=== PATIENT | female | born 1965 | race African-American/Black ===

== ENCOUNTER 2016-12-05 11:05 | Emergency (ER) | payer MEDICARE ==
[~2016-12-05] VITALS: Ht 162.6 cm; Wt 106.2 kg
[~2016-12-05 11:05] MED LIST: AMOX/K CLAV875 M1 PO; AMOXICILLIN500 MG PO; ATORVASTATIN CA10 MG PO; BACLOFEN10 MG PO; BL ADULT ASA81 MG PO; DOXYCYCL HYC100 M4 PO; ENALAPRIL2.5 MG PO; FERROUS SULF325 M3 PO; FIORICET PO; FLEXERIL PO; FOLIC ACID1 MG PO; GABAPENTIN100 MG PO; GABAPENTIN300 MG PO; HEMOCYTE325 MG PO; HYDROCHLOROT25 MG PO; INDERAL 40MG TA40 MG PO; KEFLEX500 MG PO; LIPITOR20 MG PO; LISINOP/HCTZ1 TA2 PO; LISINOPRIL10 MG PO; LISINOPRIL2.5 MG PO; LISINOPRIL5 MG PO; LOPRESSOR25 MG PO; LYRICA50 MG PO; LYRICA75 MG PO; MEDDOSEPAK PO; NAPROXEN500 MG PO; OMEPRAZOLE20 M1 PO; OMEPRAZOLE20 MG PO; PHENERGAN12.5 MG/TA PO; PLAVIX75 MG PO; PRILOSEC40 MG PO; PROTONIX40 M2 PO; RANITIDINE150 MG OR; ROBITUSSIN AC10 ML PO; TESSALON PER100 MG PO; TRAMADOL HCL50 MG PO; TRAZODONE50 MG PO; TRIAMCINOLON0.11 EX; TRIAMCINOLON0.5 % EX; TYLENOL325 MG PO; ULTRAM50 M1 PO; ZITHROMAX250 MG PO; ZOCOR20 M1 PO; ZPAK PO
[2016-12-05 12:20] LABS: HEMATOCRIT 35.5 % (37.0-47.0); HEMOGLOBIN 12.8 g/dl (12.0-16.0); IMMATURE GRANULOCYTES 0.3 % (0.0-1.0); MEAN CELL VOLUME 82.9 fL CALC (80.0-100.0); MEAN CORPUSCULAR HGB 29.9 pG CALC (26.0-32.0); MEAN CORPUSCULAR HGB CONC 36.1 g/L CALC (32.0-36.0); NEUT# 5.53 thou/uL (2.00-7.15); RED BLOOD COUNT 4.28 mill/uL (4.20-5.60); RED CELL DISTRI WIDTH 14.8 % (11.5-15.5)
[2016-12-05 12:33] LABS: ALBUMIN 4.2 g/dL (3.2-5.0); ALKALINE PHOSPHATASE 70 u/l (38-126); AMYLASE 86 u/l (30-110); ANION GAP 16 (6-22 (CALC)); BILIRUBIN, TOTAL 0.7 mg/dL (0.0-1.4); BUN 14 mg/dL (7-17); BUN/CREATININE RATIO 24 (12-20 (CALC)); CALCIUM 9.8 mg/dL (8.4-10.2); CARBON DIOXIDE 24 mmol/l (22-30); CHLORIDE 107 mmol/l (95-108); CREATININE 0.6 mg/dL (0.5-1.0); GFR > 60 ML/MIN (>=60 (CALC)); GFR FOR AFR.AMER. > 60 ML/MIN (>=60 (CALC)); GLUCOSE 82 mg/dL (65-105); LIPASE 123 u/l (23-300); POTASSIUM 4.4 mmol/l (3.5-5.1); SGOT/AST 26 u/l (14-36); SGPT/ALT 23 u/l (9-52); SODIUM 143 mmol/l (137-146); TOTAL PROTEIN 7.1 g/dL (6.3-8.2)
[2016-12-05] MEDS ORDERED: TESSALON PER100 MG PO (13:27)
[2016-12-05] MEDS ORDERED: ZITHROMAX250 MG PO (13:27)
[2016-12-05] MEDS ORDERED: AFRIN 12 HOUR0.05 % (13:27)
[2016-12-05 13:48] VITALS: BP 131/81
== END 2016-12-05 13:58 | disposition home or self-care (01) ==
LOC: ED 11:05
PROVIDERS: Emergency Medicine
DX: J40 Bronchitis, not specified as acute or chronic (principal); I25.10 Atherosclerotic heart disease of native coronary artery without angina pectoris; I10 Essential (primary) hypertension; M19.90 Unspecified osteoarthritis, unspecified site; G62.9 Polyneuropathy, unspecified; Z95.1 Presence of aortocoronary bypass graft; Z95.5 Presence of coronary angioplasty implant and graft

== ENCOUNTER 2017-01-28 00:28 | Observation (INO) | payer MEDICARE ==
[~2017-01-28] VITALS: Ht 162.6 cm; Wt 109.3 kg
[~2017-01-28 00:28] MED LIST changes: +AFRIN 12 HOUR0.05 %
--- NOTE | 2017-01-28 00:30 | NUR ---
PATIENT BROUGHT IMMEDIATELY BACK TO TREATMENT AREA. UNDRESSED INTO A GOWN. PLACED ON MONITOR. TRIAGE COMPLETED AT BEDSIDE. AWAITING MD RACHEL.
[2017-01-28] MEDS ORDERED: PLAVIX75 MG PO (00:50)
[2017-01-28 01:29] LABS: HEMATOCRIT 36.2 % (37.0-47.0); HEMOGLOBIN 12.9 g/dl (12.0-16.0); IMMATURE GRANULOCYTES 0.2 % (0.0-1.0); MEAN CELL VOLUME 84.6 fL CALC (80.0-100.0); MEAN CORPUSCULAR HGB 30.1 pG CALC (26.0-32.0); MEAN CORPUSCULAR HGB CONC 35.6 g/L CALC (32.0-36.0); NEUT# 2.85 thou/uL (2.00-7.15); RED BLOOD COUNT 4.28 mill/uL (4.20-5.60); RED CELL DISTRI WIDTH 15.7 % (11.5-15.5)
--- NOTE | 2017-01-28 01:30 | NUR ---
STILL WAITING ON TEST RESULTS, GAVE PT WARM BLANKET.
[2017-01-28 01:41] LABS: ALBUMIN 4.5 g/dL (3.2-5.0); ALKALINE PHOSPHATASE 58 u/l (38-126); ANION GAP 16 (6-22 (CALC)); BILIRUBIN, TOTAL 0.4 mg/dL (0.0-1.4); BUN 15 mg/dL (7-17); BUN/CREATININE RATIO 18 (12-20 (CALC)); CALCIUM 9.8 mg/dL (8.4-10.2); CARBON DIOXIDE 26 mmol/l (22-30); CHLORIDE 107 mmol/l (95-108); CREATININE 0.8 mg/dL (0.5-1.0); GFR > 60 ML/MIN (>=60 (CALC)); GFR FOR AFR.AMER. > 60 ML/MIN (>=60 (CALC)); GLUCOSE 86 mg/dL (65-105); SGOT/AST 31 u/l (14-36); SGPT/ALT 32 u/l (9-52); SODIUM 145 mmol/l (137-146); TOTAL PROTEIN 7.4 g/dL (6.3-8.2)
[2017-01-28 01:53] LABS: MYOGLOBIN 33 ng/mL (0 - 62)
--- NOTE | 2017-01-28 02:13 | NUR ---
DR VALLES IN TO GO OVER RESULTS AND PLAN OF ADMISSION.
--- NOTE | 2017-01-28 03:10 | NUR ---
Admission Note Report Given to: EMERITA JEAN-BAPTISTE Transported by: Wheelchair X Stretcher Transported with: X Nurse Transporter X Patent IV X O2 X Lasting Room Machine Operator
[2017-01-28 03:15] VITALS: BP 138/79
--- NOTE | 2017-01-28 03:15 | NUR ---
PT TRANSFERRED TO FLOOR VIA STRETCHER ACCOMPANIED BY SEYMOUR BECKETT;PT AMBULATED WITH A STEADY GAIT TO BEDSIDE;VS AND WT OBTAINED;PT ORIENTED TO ROOM AND CALL LIGHT SYSTEM AND VERBALIZES UNDERSTANDING;PT A&O X3;PT REPORTS LEFT SIDED CHEST PAIN RADIATING TO HER LEFT ARM FOR +4 DAYS;PT COMPLAINS OF THROBBING OF LEFT ARM RATING 8/10 ON THE PAIN SCALE AT THIS TIME AND REQUESTS PAIN MEDICATION;PT TO BE MEDICATED ACCORDINGLY;ASSESSMENT COMPLETED;#20G TO LEFT HAND FLUSHED AND PATENT;TELE MONITOR IN PLACE;RESPIRATIONS EVEN AND UNLABORED ON 02 @ 2L VIA NC,PT IS NOT O2 DEPENDENT;SKIN INTACT;PT VOICES NO OTHER NEEDS AT THIS TIME AND IS EDUCATED TO CALL FOR ASSISTANCE IF NEEDED;CALL LIGHT IN REACH;WILL CONTINUE TO MONITOR
--- NOTE | 2017-01-28 04:29 | NUR ---
PT MEDICATED WITH MORPHINE 2MG IVP FOR LEFT ARM THROBBING RATING 8/10 ON THE PAIN SCALE;WILL MONITOR FOR EFFECT
[2017-01-28 04:59] VITALS: BP 111/68
[2017-01-28 06:40] LABS: URINE BILIRUBIN - DIPSTICK NEGATIVE (NEGATIVE); URINE BLOOD DIPSTICK NEGATIVE (NEGATIVE); URINE COLOR YELLOW; URINE GLUCOSE - DIPSTICK NEGATIVE (NEGATIVE); URINE KETONE NEGATIVE (NEGATIVE); URINE LEUK ESTERASE NEGATIVE (NEGATIVE); URINE NITRITE - DIPSTICK NEGATIVE (Negative); URINE PH 6.5 (4.5-8.0); URINE PROTEIN - DIPSTICK NEGATIVE (NEG-TRACE); URINE UROBILINOGEN - DIPSTICK 0.2 E.U./dL (0.2)
[2017-01-28 06:42] LABS: URINE CLARITY CLEAR
[2017-01-28 07:33] VITALS: BP 94/65
[2017-01-28 08:11] LABS: CHOLESTEROL HDL RATIO 3.5 (<4.4 (CALC))
[2017-01-28 08:43] LABS: TSH, 3RD GENERATION 3.27 uIU/mL (0.47 - 4.68)
--- NOTE | 2017-01-28 09:45 | NUR ---
ASSESSMENT IS COMPLETED: IV SITE IS FREE FROM REDNESS OR EDEMA. TELE MONITOR IN PLACE CONITNUE TO OBSERVE AND MONITOR. CONTINUED TO C/O LEFT ARM PAIN, MEDICATION GIVEN.
[2017-01-28 11:15] VITALS: BP 95/62
[2017-01-28] MEDS ORDERED: TRAMADOL HCL50 MG PO (11:18)
[2017-01-28] MEDS ORDERED: NITROGLYCER0.4 MG SL (11:18)
[2017-01-28] MEDS ORDERED: LIPITOR20 MG PO (11:21)
--- NOTE | 2017-01-28 12:15 | NUR ---
PT IS RELAXING IN BED WAITING FOR RESULTS. AND DISCHARGE INSTRUCTIONS. NO DISTRESS NOTED. IV SITE IS FREE FROM REDNESS OR EDEMA. CONTINUE TO OSBERVE AND MONITOR.
--- NOTE | 2017-01-28 13:26 | NUR ---
Spoke to patient during discharge med rec. Patient reported taking atorvastatin and tramadol in the past. Discussed the common side-effects of such as muscle aches, respiratory depression, and constipation. Pt was advised to seek medical help if she experiences difficuly breathing or darkening of urine. Discussed the indication, use, and side-effects of NTG SL tabs. Pt was instructed to place 1 tablet under tongue at the first sign of chest pain. May take another dose after 5 mins if chest pain has not resolved. Pt was instructed to call 911 right after taking the second dose. She was advised to take upto 3 tablets with 5 min intervals.
--- NOTE | 2017-01-28 13:29 | NUR ---
IV SITE DISCONITNUED CATHETER INTACT. NO REDNESS OR EDEMA. DISCHARGE INSTRUCTIONS GIVEN AND VERBALIZED UNDERSTANDING. Discharge instructions given. Patient verbalizes understanding of same. Discharged in stable condition via Wheelchair to Home with family. All belongings sent with pt.
== END 2017-01-28 13:29 | disposition home or self-care (01) ==
LOC: ED 00:28 → ED-I 01:54 → ED 02:17 → MS2 02:18
PROVIDERS: Emergency Medicine; ADMIT Internal Medicine; ATTEND Internal Medicine
DX: R07.89 Other chest pain (principal); I25.119 Atherosclerotic heart disease of native coronary artery with unspecified angina pectoris; I10 Essential (primary) hypertension; G62.9 Polyneuropathy, unspecified; M19.90 Unspecified osteoarthritis, unspecified site; I25.2 Old myocardial infarction; Z95.5 Presence of coronary angioplasty implant and graft; Z95.1 Presence of aortocoronary bypass graft

== ENCOUNTER 2017-12-02 19:35 | Emergency (ER) | payer MEDICARE ==
[~2017-12-02] VITALS: Ht 162.6 cm; Wt 105.0 kg
[~2017-12-02 19:35] MED LIST changes: +NITROGLYCER0.4 MG SL
[2017-12-02] MEDS ORDERED: COREG6.25 MG PO (20:03)
[2017-12-02 20:35] LABS: HEMATOCRIT 35.9 % (37.0-47.0); HEMOGLOBIN 12.8 g/dl (12.0-16.0); IMMATURE GRANULOCYTES 0.3 % (0.0-5.0); MEAN CELL VOLUME 85.1 fL CALC (80.0-100.0); MEAN CORPUSCULAR HGB 30.3 pG CALC (26.0-32.0); MEAN CORPUSCULAR HGB CONC 35.7 g/L CALC (32.0-36.0); NEUT# 3.1 thou/uL (2.00-7.15); RED BLOOD COUNT 4.22 mill/uL (4.20-5.60)
[2017-12-02 20:39] LABS: ALBUMIN 4.2 g/dL (3.2-5.0); ALKALINE PHOSPHATASE 71 u/l (38-126); ANION GAP 14 (6-22 (CALC)); BILIRUBIN, TOTAL 0.3 mg/dL (0.0-1.4); BUN 16 mg/dL (7-17); BUN/CREATININE RATIO 21 (12-20 (CALC)); CARBON DIOXIDE 24 mmol/l (22-30); CHLORIDE 110 mmol/l (95-108); CREATININE 0.7 mg/dL (0.5-1.0); GFR > 60 ML/MIN (>=60 (CALC)); GFR FOR AFR.AMER. > 60 ML/MIN (>=60 (CALC)); POTASSIUM 3.7 mmol/l (3.5-5.1); SGOT/AST 21 u/l (14-36); SODIUM 145 mmol/l (137-146); TOTAL PROTEIN 6.7 g/dL (6.3-8.2)
[2017-12-02 20:44] LABS: ACT PARTIAL THROMBO TIME 20.1 SECONDS (20.0-32.5); D-DIMER 0.17 mg/L (0.19-0.60)
[2017-12-02 20:51] LABS: MYOGLOBIN 34 ng/mL (0 - 62)
[2017-12-03] MEDS ORDERED: VICOPROFEN PO (00:54)
[2017-12-03] MEDS ORDERED: PEPCID40 MG PO (00:54)
[2017-12-03 01:22] VITALS: BP 137/83
== END 2017-12-03 01:22 | disposition home or self-care (01) ==
LOC: ED 19:35
PROVIDERS: Family Medicine
DX: K21.9 Gastro-esophageal reflux disease without esophagitis (principal); R07.89 Other chest pain; I10 Essential (primary) hypertension; Z95.5 Presence of coronary angioplasty implant and graft; Z95.1 Presence of aortocoronary bypass graft

== ENCOUNTER 2017-12-20 17:29 | Emergency (ER) | payer MEDICARE ==
[~2017-12-20] VITALS: Ht 162.6 cm; Wt 101.0 kg
[~2017-12-20 17:29] MED LIST changes: +COREG6.25 MG PO; +PEPCID40 MG PO; +VICOPROFEN PO
[2017-12-20 18:29] LABS: HEMATOCRIT 38.4 % (37.0-47.0); HEMOGLOBIN 13.8 g/dl (12.0-16.0); IMMATURE GRANULOCYTES 0.2 % (0.0-5.0); MEAN CELL VOLUME 86.3 fL CALC (80.0-100.0); MEAN CORPUSCULAR HGB CONC 35.9 g/L CALC (32.0-36.0); NEUT# 2.77 thou/uL (2.00-7.15); RED BLOOD COUNT 4.45 mill/uL (4.20-5.60); RED CELL DISTRI WIDTH 15.4 % (11.5-15.5)
[2017-12-20 18:41] LABS: ALBUMIN 3.9 g/dL (3.2-5.0); ALKALINE PHOSPHATASE 66 u/l (38-126); ANION GAP 12 (6-22 (CALC)); BILIRUBIN, TOTAL 0.3 mg/dL (0.0-1.4); BUN 10 mg/dL (7-17); BUN/CREATININE RATIO 15 (12-20 (CALC)); CARBON DIOXIDE 27 mmol/l (22-30); CHLORIDE 110 mmol/l (95-108); CREATININE 0.7 mg/dL (0.5-1.0); GFR > 60 ML/MIN (>=60 (CALC)); GFR FOR AFR.AMER. > 60 ML/MIN (>=60 (CALC)); POTASSIUM 3.8 mmol/l (3.5-5.1); SGOT/AST 16 u/l (14-36); SODIUM 145 mmol/l (137-146); TOTAL PROTEIN 6.3 g/dL (6.3-8.2)
[2017-12-20] MEDS ORDERED: NAPROSYN500 MG PO (22:27)
[2017-12-20 22:30] VITALS: BP 134/80
== END 2017-12-20 22:35 | disposition home or self-care (01) ==
LOC: ED 17:29
PROVIDERS: Family Medicine
DX: M54.6 Pain in thoracic spine (principal); R05 Cough; R06.02 Shortness of breath; I10 Essential (primary) hypertension; Z95.1 Presence of aortocoronary bypass graft; R23.2 Flushing
CPT/HCPCS: Q9967

== ENCOUNTER 2018-01-17 21:46 | Emergency (ER) | payer MEDICARE ==
[~2018-01-17] VITALS: Ht 162.6 cm; Wt 106.0 kg
[~2018-01-17 21:46] MED LIST changes: +NAPROSYN500 MG PO
[2018-01-17] MEDS ORDERED: LORTAB 1010 MG PO (22:39)
[2018-01-17 23:10] VITALS: BP 152/93
== END 2018-01-17 23:12 | disposition home or self-care (01) ==
LOC: ED 21:46
DX: S92.422A Displaced fracture of distal phalanx of left great toe, initial encounter for closed fracture (principal); I10 Essential (primary) hypertension; W20.8XXA Other cause of strike by thrown, projected or falling object, initial encounter; Y93.89 Activity, other specified; Y92.003 Bedroom of unspecified non-institutional (private) residence as the place of occurrence of the external cause; Z95.5 Presence of coronary angioplasty implant and graft; Z95.1 Presence of aortocoronary bypass graft

== ENCOUNTER 2019-04-04 | Day surgery (SDC) | payer MEDICARE ==
[~2019-04-04] MED LIST changes: +ATORVASTATIN CA20 MG PO; +CALCIUM600 M1 PO; +COZAAR25 MG PO; +LORTAB 1010 MG PO
== END 2019-04-04 09:00 | disposition home or self-care (01) ==
PROC: 0DJD8ZZ Inspection of Lower Intestinal Tract, Via Natural or Artificial Opening Endoscopic (ICD-10-PCS; principal; 2019-04-04)
DX: Z12.11 Encounter for screening for malignant neoplasm of colon (principal); E11.9 Type 2 diabetes mellitus without complications; I10 Essential (primary) hypertension; Z95.1 Presence of aortocoronary bypass graft; Z95.5 Presence of coronary angioplasty implant and graft

== ENCOUNTER 2019-10-25 22:22 | Emergency (ER) | payer MEDICARE ==
[~2019-10-25] VITALS: Ht 162.6 cm; Wt 104.5 kg
[2019-10-26] MEDS ORDERED: IBUPROFEN600 MG PO (01:12)
[2019-10-26] MEDS ORDERED: ORPHENADRINE100 MG PO (01:12)
[2019-10-26 01:30] VITALS: BP 131/81
== END 2019-10-26 01:30 | disposition home or self-care (01) ==
LOC: ED 22:22
DX: M79.604 Pain in right leg (principal); E11.9 Type 2 diabetes mellitus without complications; I10 Essential (primary) hypertension; M79.7 Fibromyalgia

== ENCOUNTER 2020-03-23 08:59 | Inpatient (IN) | payer MEDICARE ==
[~2020-03-23] VITALS: Ht 162.6 cm; Wt 102.3 kg
[~2020-03-23 08:59] MED LIST changes: +IBUPROFEN600 MG PO; +ORPHENADRINE100 MG PO
--- NOTE | 2020-03-23 09:00 | NUR ---
PT AMBULATED TO ROOM WITH STEADY GAIT. WHEELCHAIR OFFERED AND DECLINED.
--- NOTE | 2020-03-23 09:37 | NUR ---
COVID SWAB COLLECTED, ISOLATION PRECAUTIONS INITIATED.
[2020-03-23 10:10] LABS: URINE BILIRUBIN - DIPSTICK NEGATIVE (NEGATIVE); URINE BLOOD DIPSTICK NEGATIVE (NEGATIVE); URINE COLOR YELLOW; URINE GLUCOSE - DIPSTICK NEGATIVE (NEGATIVE); URINE KETONE NEGATIVE (NEGATIVE); URINE LEUK ESTERASE NEGATIVE (NEGATIVE); URINE NITRITE - DIPSTICK NEGATIVE (Negative); URINE PROTEIN - DIPSTICK 30 mg/dL (NEG-TRACE); URINE SPECIFIC GRAVITY 1.015
[2020-03-23 10:11] LABS: HEMATOCRIT 36.4 % (37.0-47.0); HEMOGLOBIN 12.8 g/dl (12.0-16.0); IMMATURE GRANULOCYTES 0.5 % (0.0-5.0); MEAN CELL VOLUME 83.7 fL CALC (80.0-100.0); MEAN CORPUSCULAR HGB 29.4 pG CALC (26.0-32.0); MEAN CORPUSCULAR HGB CONC 35.2 g/dL CAL (32.0-36.0); NEUT# 4.52 thou/uL (2.00-7.15); RED BLOOD COUNT 4.35 mill/uL (4.20-5.60); RED CELL DISTRI WIDTH 14.3 % (11.5-15.5)
--- NOTE | 2020-03-23 10:11 | NUR ---
Resting. Stble. Call loera in place
[2020-03-23 10:16] LABS: URINE EPITHELIAL CELLS MODERATE EPI/hpf (0-FEW)
[2020-03-23 10:21] LABS: ALBUMIN 4.1 g/dL (3.2-5.0); ALKALINE PHOSPHATASE 97 u/l (38-126); AMYLASE 65 u/l (30-110); ANION GAP 10 (6-22 (CALC)); BILIRUBIN, TOTAL 0.5 mg/dL (0.0-1.4); BUN 9 mg/dL (7-17); BUN/CREATININE RATIO 15 (12-20 (CALC)); CHLORIDE 96 mmol/l (95-108); CREATININE 0.6 mg/dL (0.5-1.0); ETHYL ALCOHOL 0 mg/dl (0-30); GFR > 60 ML/MIN (>=60 (CALC)); GFR FOR AFR.AMER. > 60 ML/MIN (>=60 (CALC)); LIPASE 87 u/l (23-300); POTASSIUM 3.2 mmol/l (3.5-5.1); SGOT/AST 34 u/l (14-36); SODIUM 136 mmol/l (137-146); TOTAL PROTEIN 6.8 g/dL (6.3-8.2)
[2020-03-23 10:34] LABS: CARBON DIOXIDE 33 mmol/l (22-30)
[2020-03-23 10:36] LABS: INTERNATIONAL NORMALIZED RATIO 0.9 RATIO (0.7-1.3); PROTHROMBIN TIME 9.2 SECONDS (9.0-12.5)
[2020-03-23 10:48] LABS: D-DIMER 0.22 mg/L (0.19-0.60)
--- NOTE | 2020-03-23 11:05 | NUR ---
MD AT BEDSIDE TO DISCUSS RESULTS AND POC.
--- NOTE | 2020-03-23 13:00 | NUR ---
Discussed POC with patient and medications to follow. Patient states understanding of PICC line, PICC card placed bedd
--- NOTE | 2020-03-23 14:39 | NUR ---
Reassessment of patient completed. No distress noted. Patient denies any other needs at this time.
--- NOTE | 2020-03-23 16:09 | NUR ---
GLENN ALTMAN APRN AT BEDSIDE.
--- NOTE | 2020-03-23 17:25 | NUR ---
ATTEMPTED TO CALL REPORT, NURSE UNABLE TO TAKE CALL WILL RETURN CALL FOR REPORT.
--- NOTE | 2020-03-23 17:56 | NUR ---
FLOOR NURSE CALLED FOR REPORT, PATIENT REPORT GIVEN.
[2020-03-23 18:22] VITALS: BP 120/66
--- NOTE | 2020-03-23 18:22 | NUR ---
PT ARRIVED TO UNIT AT 1822 VIA STRETCHER WITH ER STAFF X 2. AMBULATED TO BED INDEPENDENTLY; ALERT AND ORIENTED X 3. DENIES PAIN, BUT REPORTS RESTLESS LEGS AND "ACHING BONES" IN BILATERAL HIPS. RESPIRATIONS EVEN AND UNLABORED ON ROOM AIR; DENIES SOB; SPO2 89-93% ON ROOM AIR; OXYGEN APPLIED 2L VIA NC. ORIENTED TO ROOM AND CALL LIGHT SYSTEM. POC REVIEWED. PT ENCOURAGED TO VERBALIZE CONCERNS. STATES UNDERSTANDING. SAFETY MEASURES IN PLACE. CALL LIGHT WITHIN REACH.
--- NOTE | 2020-03-23 18:30 | NUR ---
TO MED SURG VIA STRETCHER, TELE MONITOR IN PLACE.
--- NOTE | 2020-03-23 20:00 | NUR ---
RECEIVED REPORT FROM NURSE LEDEZMA PATIENT RESTING IN BED WITH O2 @ 2LPM VIA NC, BREATGHING SHALLOW, UNLABORED, COUGH NON PRODUCTIVE, WITH SINGLE LUMEN PICC ON SWEETIE PATENT FLUSHES WELL AND WITH GOOD BLOOD RETURN, ACTIVE BOWEL SOUNDS, LBM 2/1, CALL LIGHT AT REACH.
[2020-03-24] VITALS: BP 99/57
--- NOTE | 2020-03-24 00:16 | NUR ---
PATIENT RESTING IN BED WITH EYES CLOSED, BREATHING EVEN UNLABORED, NO DISCOMFORTS NOTED AT THIS TIME, CALL LIGHT AT REACH.
[2020-03-24 04:00] VITALS: BP 122/61
--- NOTE | 2020-03-24 05:06 | NUR ---
PATIENT RESTING IN BED WITH EYES CLOSED, BREATHING [place] UNLABORED,DUE LAB, BLOOD DRAWN FROM PICC LINE, [place] PROTOCOOL. CALL LIGHT AT REACH.
[2020-03-24 05:14] LABS: BASO% 0 % (0-3); EOS% 0 % (0-8); HEMATOCRIT 33.8 % (37.0-47.0); HEMOGLOBIN 11.6 g/dl (12.0-16.0); IMMATURE GRANULOCYTES 0.4 % (0.0-5.0); LYMPH% 20 % (15-41); MEAN CELL VOLUME 84.1 fL CALC (80.0-100.0); MEAN CORPUSCULAR HGB 28.9 pG CALC (26.0-32.0); MEAN CORPUSCULAR HGB CONC 34.3 g/dL CAL (32.0-36.0); MONO% 7 % (2-13); NEUT# 3.35 thou/uL (2.00-7.15); NEUT% 72 % (42-76); PLATELET COUNT 357 thou/uL (130-400); RED BLOOD COUNT 4.02 mill/uL (4.20-5.60); RED CELL DISTRI WIDTH 14.2 % (11.5-15.5)
[2020-03-24 05:41] LABS: ALBUMIN 3.6 g/dL (3.2-5.0); ALKALINE PHOSPHATASE 89 u/l (38-126); ANION GAP 11 (6-22 (CALC)); BILIRUBIN, TOTAL 0.4 mg/dL (0.0-1.4); BUN 10 mg/dL (7-17); BUN/CREATININE RATIO 17 (12-20 (CALC)); C-REACTIVE PROTEIN 4.7 mg/dL (0-0.9); CARBON DIOXIDE 29 mmol/l (22-30); CHLORIDE 100 mmol/l (95-108); CREATININE 0.6 mg/dL (0.5-1.0); GFR > 60 ML/MIN (>=60 (CALC)); GFR FOR AFR.AMER. > 60 ML/MIN (>=60 (CALC)); POTASSIUM 3.8 mmol/l (3.5-5.1); SGOT/AST 26 u/l (14-36); SODIUM 136 mmol/l (137-146); TOTAL PROTEIN 5.9 g/dL (6.3-8.2)
--- NOTE | 2020-03-24 07:00 | NUR ---
REPORT RECEIVED FROM SEYMOUR DAVEY. PT RESTING IN BED SEMI FOWLERS WITH EYES CLOSED AND NO SIGNS OF DISTRESS; OPENS EYES SPONTANEOUSLY. ALERT AND ORIENTED X 3. DENIES PAIN. RESPIRATIONS EVEN AND UNLABORED ON ROOM AIR; SPO2 90%; PT REMOVED OXYGEN TO USE BATHROOM; OXYGEN REAPPLIED AND SPO2 INCREASED TO 93%. TELE ON. PICC LINE TO SWEETIE APPEARS HEALTHY; FLUSHES WITH GOOD BLOOD RETURN. POC REVIEWED. PT ENCOURAGED TO VERBALIZE CONCNERN. STATES UNDERSTANDING. SAFETY MEASURES IN PLACE. CALL LIGHT WITHIN REACH.
[2020-03-24 08:00] VITALS: BP 104/53
[2020-03-24 10:40] VITALS: BP 95/59
--- NOTE | 2020-03-24 11:20 | NUR ---
PT TRANSFERRED FROM ROOM 285 TO ROOM 291 AT THIS TIME VIA BED PER REQUEST FOR WARMER ROOM.
--- NOTE | 2020-03-24 14:54 | NUR ---
ULTRAM GIVEN FOR PAINFUL, RESTLESS LEGS.
[2020-03-24 15:30] VITALS: BP 112/66
--- NOTE | 2020-03-24 15:33 | NUR ---
ULTRAM INEFFECTIVE FOR BLE PAIN; MORPINE GIVEN AT THIS TIME. PICC LINE FLUSHED PER PROTOCOL.
--- NOTE | 2020-03-24 17:00 | NUR ---
PT REPORTS THAT MORPHINE WAS EFFECTIVE FOR PAIN TO LEGS. RESTING ON LEFT SIDE WITH OXYGEN IN PLACE AT 2L VIA NC.
[2020-03-24 19:00] VITALS: BP 93/51
--- NOTE | 2020-03-24 20:15 | NUR ---
SITTING UP IN WITH LEGS CROSSED; ALERT AND ORIENTED. DENIES PAIN CURRENTLY. RESPIRATIONS EVEN AND UNLABORED ON OXYGEN 2L VIA NC; LUNGS ARE CLEAR. ACCU CHECK 207; PT REQUESTING SNACK. INCENTIVE SPIROMETER PROVIDED AND PT EDUCATED ON USE; RETURN DEMONSTRATION; INSPIRATORY VOLUME OF 1000. POC REVIEWED. PT ENCOURAGED TO VERBALIZE CONCERNS. STATES UNDERSTANDING. SAFETY MEASURES IN PLACE. CALL LIGHT WITHIN REACH.
[2020-03-25] VITALS (8 sets, daily range): BP systolic 82–112; BP diastolic 44–64
--- NOTE | 2020-03-25 00:25 | NUR ---
PT RESTING WITH EYES CLOSED AND NO SIGNS OF DISTRESS. SAFETY MEASURES IN PLACE. CALL LIGHT WITHIN REACH.
--- NOTE | 2020-03-25 01:14 | NUR ---
RECEIVED REPORT FROM BRISA CORRAL.
--- NOTE | 2020-03-25 03:33 | NUR ---
PATIENT LAYING IN BED AT THIS TIME. PATIENT DENIES ANY PAIN. RIGHT UPPER ARM PICC LINE FLUSHED AT THIS TIME. PATIENT REMAINS ON 2 LITERS OF 02 AND DENEIS ANY SHORTNESS OF BREATH AT THIS TIME. CALL LIGHT IS WITHIN REACH SIDERAILS UP X 2.
[2020-03-25 06:02] LABS: HEMATOCRIT 33.3 % (37.0-47.0); HEMOGLOBIN 11.5 g/dl (12.0-16.0); MEAN CELL VOLUME 84.3 fL CALC (80.0-100.0); MEAN CORPUSCULAR HGB 29.1 pG CALC (26.0-32.0); MEAN CORPUSCULAR HGB CONC 34.5 g/dL CAL (32.0-36.0); RED BLOOD COUNT 3.95 mill/uL (4.20-5.60); RED CELL DISTRI WIDTH 14.1 % (11.5-15.5)
[2020-03-25 06:25] LABS: ANION GAP 11 (6-22 (CALC)); BUN 12 mg/dL (7-17); BUN/CREATININE RATIO 20 (12-20 (CALC)); CARBON DIOXIDE 26 mmol/l (22-30); CHLORIDE 101 mmol/l (95-108); CREATININE 0.6 mg/dL (0.5-1.0); GFR > 60 ML/MIN (>=60 (CALC)); GFR FOR AFR.AMER. > 60 ML/MIN (>=60 (CALC)); MAGNESIUM 2.2 mg/dL (1.6-2.3); POTASSIUM 3.7 mmol/l (3.5-5.1); SODIUM 135 mmol/l (137-146)
--- NOTE | 2020-03-25 07:30 | NUR ---
PATIETN LAYING IN BED AT THIS TIME DENEIS ANY NEEDS AND OR PAIN. SIDERAILS ARE UP CALL LIGHT WITHIN REACH. NATURAL FOODS CLERK DONE AT THIS TIME SEE INTERVENTIONS. RIGHT UPPER ARM SINGLE LUMENS PICC LINE FLUSHED AT THIS TIME WITH NOTED BLOOD RETURN.
--- NOTE | 2020-03-25 11:53 | NUR ---
PATIENT SITTING UP AT BEDSIDE EATING LUNCH. PATIENT DENIES ANY NEEDS OR PAIN AT THIS TIME. CALL LIGHT IS WITHIN REACH SIDERAILS UP X 2.
--- NOTE | 2020-03-25 15:49 | NUR ---
PT IN HIGH PETERS'S POSITION; NO COMPLAINTS VOICED; CALL KAUFMAN WITHIN REACH; WILL CONTINUE TO MONITOR.
--- NOTE | 2020-03-25 19:10 | NUR ---
ENTERED THE ROOM. IT IS DARK WITH LIGHTS DOWN AND TV ON. PT IS PRONING, NO S/O DISTRESS NOTED. I WROTE MY NAME ON THE BOARD AND OBSERVED CHEST RISE, PT DID NOT AWAKE TO MY BEING IN THE ROOM AT THIS TIME. NO S/O DISTRESS.
--- NOTE | 2020-03-25 21:38 | NUR ---
PT MEDICATED AT THIS TIME ORDERS PROVIDE AND FOR PAIN, COUGH. COMFORT MEASURES OFFERED, DENIED ANY NEEDS. DISCUSSED PRONING POSITION WITH PT, SHE STATES THAT IT REALLY HELPS HER BREATHE BETTER, I ENCOURAGED HER TO CONTINUE SHE IS ABLE TO DO SO. DISCUSSED IS WITH HER, SHE DID NOT DEMONSTRATE AT THIS TIME, BUT REPORTED USING IT OFTEN AND THAT SHE REACHES 1500 PER BREATH AT THIS TIME. PT LEFT SITTING ON THE SIDE OF THE BED READING HER BIBLE. I ENCOURAGED HER TO CALL NEEDS ARISE, SHE VERBALIZED UNDERSTADING. CALL LIGHT IS W/IN REACH.
[2020-03-26 04:00] VITALS: BP 115/61
--- NOTE | 2020-03-26 04:34 | NUR ---
BLOOD DRAWN FOR LAB AND LINE FLUSHED PATENT. PT IS ASKING ABOUT WHEN SHE WILL BE GOING HOME. SHE REPORTS FEELING BETTER. OXYGEN IS OFF AT THIS TIME, SHE REPORTS FEELING DRIED OUT AND SORE IN HER NOSE, I ADDED HUMIDITY TO THE OXYGEN NC FOR COMFORT. DENIES ANY OTHER NEEDS AT THIS TIME.
[2020-03-26 06:06] LABS: HEMOGLOBIN 11.3 g/dl (12.0-16.0); IMMATURE GRANULOCYTES 0.8 % (0.0-5.0); MEAN CELL VOLUME 83.3 fL CALC (80.0-100.0); MEAN CORPUSCULAR HGB 29.4 pG CALC (26.0-32.0); MEAN CORPUSCULAR HGB CONC 35.3 g/dL CAL (32.0-36.0); NEUT# 10.58 thou/uL (2.00-7.15); RED BLOOD COUNT 3.84 mill/uL (4.20-5.60); RED CELL DISTRI WIDTH 14.4 % (11.5-15.5)
[2020-03-26 06:35] LABS: ALBUMIN 3.2 g/dL (3.2-5.0); ALKALINE PHOSPHATASE 73 u/l (38-126); ANION GAP 11 (6-22 (CALC)); BILIRUBIN, TOTAL 0.3 mg/dL (0.0-1.4); BUN 15 mg/dL (7-17); BUN/CREATININE RATIO 23 (12-20 (CALC)); C-REACTIVE PROTEIN 0.8 mg/dL (0-0.9); CARBON DIOXIDE 26 mmol/l (22-30); CHLORIDE 102 mmol/l (95-108); CREATININE 0.7 mg/dL (0.5-1.0); GFR > 60 ML/MIN (>=60 (CALC)); GFR FOR AFR.AMER. > 60 ML/MIN (>=60 (CALC)); POTASSIUM 3.7 mmol/l (3.5-5.1); SGOT/AST 19 u/l (14-36); SODIUM 135 mmol/l (137-146); TOTAL PROTEIN 5.4 g/dL (6.3-8.2)
[2020-03-26 07:15] VITALS: BP 118/61
--- NOTE | 2020-03-26 07:30 | NUR ---
PATIETN RESTING IN BED AT THIS TIME CALL LIGHT WITHIN REACH. SIDERAILS UP X 2. JOINERY FACTORY WORKER DONE SEE INTERVENTIONS. 02 ON AT 2L PATIENT DENIES COUGHING AND OR PAIN AT THIS TIME. PATIENT USING INSENTIVE SPIROMENTER AND IS REACHING 1500. PATIENT DENIES ALL OTHER NEEDS.
[2020-03-26 11:23] VITALS: BP 135/74
--- NOTE | 2020-03-26 11:45 | NUR ---
PATIENT SITTING UP IN BED AT THIS TIME DENEIES PAIN OR NEEDS CALL LIGHT WITHIN REACH. SIDERAILS UP X2 O2 REMAINS ON AT 2 LITERS
[2020-03-26 15:00] VITALS: BP 115/69
--- NOTE | 2020-03-26 15:53 | NUR ---
PATIENT RESTING IN BED AT THIS TIME PATIENT DENIES ANY NEEDS AND HAS HAD HER 02 OFF AND FOR AN HOUR AND HER SPO2 IS 98%. PATIENT STATES I DON'T NEED IT AND STATED SHE IS GOING TO LEAVE IT OFF UNLESS SHE DOES. PATIENT EDCUCATED THAT IF AT ANY TIME SHE BECOMES SHORT OF BREATH TO PUT O2 ON AND CALL NURSE. PATIENT VERBALIZES UNDERSTANDING OF INSTRUCTIONS.
--- NOTE | 2020-03-26 17:13 | NUR ---
PER PROVIDER D/C TELE MONITOR AT THIS TIME ED NOTIFIED.
[2020-03-26 20:05] VITALS: BP 105/67
--- NOTE | 2020-03-26 22:05 | NUR ---
PT ASSESSED AND MEDICATIONS ADMINISTERED AT THIS TIME. NO S/O DISTRESS NOTED AT THIS TIME. PT REPORTS FEELING BETTER. OXYGEN IS OFF, SAT LEVELS STABLE AT THIS TIME WITHOUT OXYGEN. PT INSTRUCTED TO CALL IF SHE FEELS SOB OR ANY OTHER DISTRESSES. POC AND DISCHARGE DISCUSSED AT THIS TIME. CALL LIGHT AT SIDE AND PT ENCOURAGED TO CALL NEEDS ARISE.
--- NOTE | 2020-03-27 01:41 | NUR ---
PT APPEARS TO BE SLEEPING AT THIS TIME. CALL LIGHT AT SIDE.
--- NOTE | 2020-03-27 02:45 | NUR ---
PT SLEEPING, NO S/O DISTRESS NOTED. CALL LIGHT AT SIDE.
[2020-03-27 04:35] VITALS: BP 129/55
--- NOTE | 2020-03-27 05:11 | NUR ---
PT AWAKE AND WATCHING TV. NO S/O DISTRESS NOTED. DENIES ANY NEEDS AT THIS TIME, BUT WAS ENCOURAGED TO CALL NEEDS ARISE.
[2020-03-27 07:56] VITALS: BP 122/67
[2020-03-27 08:56] VITALS: BP 122/67
[2020-03-27] MEDS ORDERED: DEXAMETHASON6 MG PO (10:11)
[2020-03-27] MEDS ORDERED: ZITHROMAX250 MG PO (10:12)
--- NOTE | 2020-03-27 14:27 | NUR ---
PT IS ALERT AND ORIENTED X 3. LUNGS CLEAR, RA. NO SHORTNESS OF BREATH OR COUGH REPORTED. PT AMBULATORY TO BR IN ROOM.
--- NOTE | 2020-03-27 14:30 | NUR ---
PT HAS BEEN DISCHARGED TO HOME. PT VERBALIZED UNDERSTANDING OF DC INSTRUCTIONS, TAKEN BY WHEELCHAIR TO LOBBY. PICC LINE REMOVED WITHOUT INCIDENT. PT DID RECEIVE FINAL DOSE OF REMDESIVIR PRIOR TO DEPARTURE. PT LEAVES IN STABLE CONDITION, AWARE THAT SHE IS COVID-19 POSITIVE, WILL SELF ISOLATE UNTIL SAFE TO INTERACT WITH OTHERS.
--- NOTE | 2020-03-31 11:15 | NUR ---
Pneumonia post discharge follow up call completed today, . Pt. states she is doing wonderfully/ No fever, chills, SOB, or excessive fatigue since discharge. Pt. obtained medication prescribed at discharge and is takingh without issue. Follow appt with PCP is scheduled tomorrow, {t re[eatedly expressed profound gratitude for care provided by staff. She was very complimentary of the care, teamwork, and attitude demonstrated by staff members. No questions or issues expressed by patient at this time.
== END 2020-03-27 14:16 | disposition home or self-care (01) | DRG 177 ==
LOC: ED 08:59 → ED-I 11:40 → ED 11:58 → ED-I 11:59 → MS2 16:52
PROVIDERS: Nurse Practitioner; ADMIT Internal Medicine; ATTEND Internal Medicine
PROC: 05HB33Z Insertion of Infusion Device into Right Basilic Vein, Percutaneous Approach (ICD-10-PCS; principal; 2020-03-23)
PROC: XW033E5 Introduction of Remdesivir Anti-infective into Peripheral Vein, Percutaneous Approach, New Technology Group 5 (ICD-10-PCS; 2020-03-23)
DX: U07.1 COVID-19 (principal); J12.82 Pneumonia due to coronavirus disease 2019; J96.01 Acute respiratory failure with hypoxia; I25.10 Atherosclerotic heart disease of native coronary artery without angina pectoris; R10.13 Epigastric pain; I10 Essential (primary) hypertension; E11.42 Type 2 diabetes mellitus with diabetic polyneuropathy; M79.7 Fibromyalgia; E78.5 Hyperlipidemia, unspecified; G25.81 Restless legs syndrome; I25.2 Old myocardial infarction; Z95.1 Presence of aortocoronary bypass graft; Z95.5 Presence of coronary angioplasty implant and graft; Z79.02 Long term (current) use of antithrombotics/antiplatelets
CPT/HCPCS: J1650; Q9967; S0164

== ENCOUNTER 2020-06-27 02:11 | Emergency (ER) | payer MEDICARE ==
[~2020-06-27 02:11] MED LIST changes: +DEXAMETHASON6 MG PO
[2020-06-27] MEDS ORDERED: TYLENOL # 31 TA1 PO (02:44)
[2020-06-27 02:53] VITALS: BP 156/104
== END 2020-06-27 02:53 | disposition home or self-care (01) ==
LOC: ED 02:11
DX: K04.7 Periapical abscess without sinus (principal); I10 Essential (primary) hypertension; Z95.1 Presence of aortocoronary bypass graft; Z95.5 Presence of coronary angioplasty implant and graft

== ENCOUNTER 2021-04-26 12:17 | Emergency (ER) | payer MEDICARE ==
[~2021-04-26] VITALS: Ht 162.6 cm; Wt 103.0 kg
[2021-04-26] VITALS (7 sets, daily range): BP systolic 141–172; BP diastolic 75–103
[~2021-04-26 12:17] MED LIST changes: +TYLENOL # 31 TA1 PO
== END 2021-04-26 15:29 | disposition home or self-care (01) ==
LOC: ED 12:17
DX: M54.50 Low back pain, unspecified (principal); M25.551 Pain in right hip; I10 Essential (primary) hypertension; M79.7 Fibromyalgia; Z95.1 Presence of aortocoronary bypass graft; Z95.5 Presence of coronary angioplasty implant and graft

== ENCOUNTER 2021-05-05 08:43 | Emergency (ER) | payer MEDICARE ==
[~2021-05-05] VITALS: Ht 162.6 cm; Wt 106.0 kg
[2021-05-05] VITALS (7 sets, daily range): BP systolic 111–133; BP diastolic 48–77
[2021-05-05] MEDS ORDERED: FLEXERIL5 M1 PO (11:21)
[2021-05-05] MEDS ORDERED: HYDROCO/APAP1 TA9 PO (11:34)
== END 2021-05-05 11:43 | disposition home or self-care (01) ==
LOC: ED 08:43
DX: M54.50 Low back pain, unspecified (principal); I10 Essential (primary) hypertension; Z95.1 Presence of aortocoronary bypass graft; Z95.5 Presence of coronary angioplasty implant and graft